=== PATIENT | male | born 1955 | race Caucasian/White ===

== ENCOUNTER 2016-12-25 07:32 | Inpatient (IN) | payer OTHER ==
[2016-12-25 08:00] LABS: % BASOPHILS 0.1 % (0.0-2.0); % EOSINOPHILS 3.5 % (0.0-5.0); % LYMPHOCYTES 43.2 % (20.0-50.0); % MONOCYTES 8.6 % (2.0-10.0); % NEUTROPHILS 44.6 % (40.0-80.0); HEMATOCRIT 48.2 % (41.0-60); HEMOGLOBIN 16.6 gm/dL (12-16); MEAN CELL VOLUME 86.1 fl (80-99); MEAN CORPUSCULAR HEMOGLOBIN 29.6 pg (26.0-30.0); MEAN CORPUSCULAR HGB CONC 34.4 pg (28.0-36.0); MEAN PLATELET VOLUME 9.4 fl; NEUTROPHILE ABSOLUTE 3.1 Th/cmm (1.8-8.0); PLATELET COUNT 154 Th/cmm (150-400); RED BLOOD COUNT 5.59 Mil/cmm (4.30-5.70); RED CELL DISTRIBUTION WIDTH 13.3 % (11.5-20.0); WHITE BLOOD COUNT 6.8 Th/cmm (4.8-10.8)
--- NOTE | 2016-12-25 08:10 | Diagnostic Imaging Report ---
Portable chest x-ray HISTORY: Shortness of breath The overall heart size is difficult to assess with portable technique. No acute focal pulmonary processes. No hilar or mediastinal abnormalities. IMPRESSION: No acute abnormalities
[2016-12-25 08:17] LABS: ALB/GLOB RATIO 1.1 (1.0-1.8); ALKALINE PHOSPHATASE 89 U/L (34-104); ANION GAP 9.6 (7.0-16.0); BILIRUBIN,TOTAL 1.1 mg/dL (0.3-1.0); BUN - UREA NITROGEN 14 mg/dL (7-25); CARBON DIOXIDE 22.4 mEq/L (21.0-31.0); CHLORIDE 107 mEq/L (98-107); CREATININE - SERUM 0.7 mg/dL (0.7-1.3); GLUCOSE 100 mg/dL (70-105); SGOT 71 U/L (13-39); SGPT/ALT 69 U/L (7-52); SODIUM SERUM 135 mEq/L (136-145)
[2016-12-25] MEDS ORDERED: Aspirin 81mg Chewable Tab PO STA (08:29)
[2016-12-25] MEDS ORDERED: NITROGLYCERIN OINT 2% 1 INCH PACKET TP STA (08:30)
[2016-12-25] MEDS ORDERED: Aspirin 81mg Chewable Tab ONE (08:31)
--- NOTE | 2016-12-25 08:36 | ED Physician Chart ---
ED Chief Complaint/HPI - Patient Information Date Seen:: 12/25/16 Time Seen:: 07:35 Chief Complaint:: Dyspnea History of Present Illness:: onset x 2 days of dyspnea and intermittent exertional heavy pressure type chest pain with PND, orthopnea, and exertional dyspnea; pt denies S/T, H/As, neck pain , cough, hemoptysis, Abd. Pain, A/N/V/D/C, fever, chills, or urinary s/s Allergies:: Allergies Allergy/AdvReac Type Severity Reaction Status Date / Time No Known Allergies Allergy Verified 12/25/16 07:35 Vitals:: Vital Signs - 8 hr 12/25/16 07:37 Temp 97.9 F HR 94 BP 127/87 O2 Sat % 96 Historian:: Patient Review:: Nurse's Note Reviewed ED Review of Systems - Review of Systems General/Constitutional: Fever, No chills, No weight loss, No weakness, No diaphoresis, No edema, No loss of appetite Skin: No skin lesions, No rash, No bruising Head: No headache, No light-headedness Eyes: No loss of vision, No pain, No diplopia ENT: No earache, No nasal drainage, No sore throat, No tinnitus Neck: No neck pain, No swelling, No thyromegaly, No stiffness, No mass noted Cardio Vascular: Chest pain, Palpitations, PND, orthopnea, edema Pulmonary: SOB, Cough, No sputum, No wheezing GI: No nausea, No vomiting, No diarrhea, No pain, No melena, No hematochezia, No constipation, No hematemesis G/U: No dysuria, No frequency, No hematuria Musculoskeletal: No bone or joint pain, No back pain, No muscle pain Endocrine: No polyuria, No polydipsia Psychiatric: No prior psych history, No depression, No anxiety, No suicidal ideation Hematopoietic: No bruising, No lymphadenopathy Allergic/Immuno: No urticaria, No angioedema Neurological: No syncope, No focal symptoms, No weakness, No paresthesia, No headache, No seizure, No dizziness, No confusion, No vertigo ED Past Medical History - Past Medical History Obtainable: Yes Past Medical History: HTN, CAD, CHF, Dyslipidemia Family History: Diabetes Melitus, HTN Social History: Smoker, Alcohol, No Drug Use, Single Surgical History: None Psychiatricy History: None Medication: Reviewed Family Medical History - Family Member Mother History Unknown: Yes ED Physical Exam - Physical Examination General/Constitutional: Awake, Well-developed, well-nourished, Alert, No distress, GCS 15, Non-toxic appearing, Ambulatory Head: Atraumatic Eyes: Lids, conjuctiva normal, PERRL, EOMI Skin: Nl inspection, No rash, No skin lesions, No ecchymosis, Well hydrated, No lymphadenopathy ENMT: External ears, nose nl, Nasal exam nl, Lips, teeth, gums nl Neck: Nontender, Full ROM w/o pain, No JVD, No nuchal rigidity, No bruit, No mass, No stridor Respiratory: Nl effort/Exclusion Other Respiratory comments:: Lungs: + Bibasilar Rales Cardio Vascular: RRR, No murmur, gallop, rubs, NL S1 S2 GI: No tenderness/rebounding/guarding, No organomegaly, No hernia, Normal BS's, Nondistended, No mass/bruits, No McBurney tenderness : No CVA tenderness Extremities: No tenderness or effusion, Full ROM, normal strength in all extremities, No edema, Normal digits & nails Neuro/Psych: Alert/oriented, DTR's symmetric, Normal sensory exam, Normal motor strength, Judgement/insight normal, Mood normal, Normal gait, No focal deficits Misc: Normal back, No paraspinal tenderness ED Labs/Radiology/EKG Results - Lab Results Results: Laboratory Tests 12/25/16 12/25/16 07:55 07:55 WBC 6.8 RBC 5.59 Hgb 16.6 Hct 48.2 MCV 86.1 MCH 29.6 MCHC Differential 34.4 RDW 13.3 Plt Count 154 MPV 9.4 Neutrophils % 44.6 Lymphocytes % 43.2 Monocytes % 8.6 Eosinophils % 3.5 Basophils % 0.1 Sodium 135 L Potassium 4.0 Chloride 107 Carbon Dioxide 22.4 Anion Gap 9.6 BUN 14 Creatinine 0.7 Est GFR ( Amer) > 60.0 Est GFR (Non-Af Amer) > 60.0 BUN/Creatinine Ratio 20.0 Glucose 100 Calcium 9.0 Total Bilirubin 1.1 H AST 71 H ALT 69 H Alkaline Phosphatase 89 Total Protein 7.6 Albumin 4.0 L Globulin 3.6 Albumin/Globulin Ratio 1.1 Comments:: BNP: 375 - Radiology Results Results: CXR: NAD - EKG Interpretations EKG Time:: 08:07 Rate & Rhythm: 86; NSR Comments:: Old MS; T-Wave Inversions; ED Septic Shock - . Is Septic Shock (SBP<90, OR Lactate>4 mmol\L) present?: No - <6hrs of presentation: Vital Signs: Vital Signs - 8 hr 12/25/16 07:37 Temp 97.9 F HR 94 BP 127/87 O2 Sat % 96 ED Reassessment (Disposition) - Reassessment Reassessment Condition:: Improved - Diagnosis Diagnosis:: Dx: Dyspnea; Chest Pain; Angina Pectoris; CHF; Myocardial Ischemia - Aftercare/Follow up Instructions Aftercare/Follow-Up Instructions:: Counseled pt regarding lab results/diagnosis & need follow up, Counseled pt & family regarding lab results/diagnosis & need follow up - Patient Disposition Discharge/Transfer:: Acute Care w/in this hosp Accepting Physician:: Dr. Brewer Time Called:: 899 Time Responded:: 09:00 Admitted to:: Telemetry Spoke to:: Dr. Brewer Admitting Medical Physician:: Dr. Brewer Condition at Disposition:: Stable, Improved
[2016-12-25] MEDS ORDERED: NITROGLYCERIN OINT 2% 1 INCH PACKET TP ONE (08:41)
[2016-12-25 08:48] LABS: INR 1.09 (0.5-1.4); PROTHROMBIN TIME (TEST) 11.3 SECONDS (9.5-11.5)
[2016-12-25 08:56] LABS: CHOLESTEROL 137 mg/dL (<200); TRIGLYCERIDES 171 mg/dL (<150)
[2016-12-25 09:51] LABS: HCO3 23.6 mEq/L (20.0-26.0); pH 7.44 (7.35-7.45)
[2016-12-25 09:52] LABS: ABG SOURCE Arterial; ALLEN TEST YES; BE(B) -1.7 mEq/L (-3.0-3.0); FIO2 28
[2016-12-25] MEDS ORDERED: Acetaminophen 500 MG TAB PO ONE (17:30)
--- NOTE | 2016-12-25 21:52 | Consultation ---
DATE OF CONSULTATION: 12/25/2016 PATIENT OF: Dr. Eric Brewer. HISTORY AND PHYSICAL: This is a 61-year-old male patient who complained of shortness of breath on minimal exertion, orthopnea. Following this had minimal swelling in both lower extremities. The patient came to the Emergency Room, the patient was found to have congestive heart failure, hence the patient is admitted. PAST MEDICAL HISTORY: The patient has a history of hypertension, hyperlipidemia, congestive heart failure. FAMILY HISTORY: Diabetes, hypertension. SOCIAL HISTORY: No history of smoking or alcohol abuse. ALLERGIES: None. PHYSICAL EXAMINATION: HEAD: Normocephalic. No lumps or bumps. EYES: Pupils equal, reactive to light. Fundi show AV nicking, sclerae white, conjunctivae pink. NECK: Carotid 2+. Normal upstroke. JVD 10 cm above the sternal angle. Thyroid not palpable. Lymph nodes not palpable. CHEST: Shows increased AP diameter. No kyphosis, scoliosis. LUNGS: Bilateral rales. Decreased breath sounds in both the bases. HEART: PMI sixth intercostal space with lateral to midclavicular line. S1, S2, S3, S4, systolic murmur, grade 2/6, lower left sternal border without radiation. ABDOMEN: Soft. Liver, spleen not palpable. Hepatojugular reflux. Bowel sounds active. RECTAL: Deferred. EXTREMITIES: Peripheral pulses 1+, pedal edema 2+. CLINICAL IMPRESSION: Congestive heart failure, systolic dysfunction, acute cardiomyopathy, hypertension, hyperlipidemia, history of coronary artery disease. PLAN: Admit the patient. We will get echocardiogram. Diuretics, preload afterload reduction. JOB# [id number]
[2016-12-26 06:44] LABS: ANION GAP 11.9 (7.0-16.0); BUN - UREA NITROGEN 21 mg/dL (7-25); BUN/CREATININE RATIO 26.3; CALCIUM SERUM 9.2 mg/dL (8.6-10.3); CARBON DIOXIDE 21.3 mEq/L (21.0-31.0); CHLORIDE 106 mEq/L (98-107); CREATININE - SERUM 0.8 mg/dL (0.7-1.3); GLUCOSE 100 mg/dL (70-105); POTASSIUM SERUM 4.2 mEq/L (3.5-5.1); SODIUM SERUM 135 mEq/L (136-145)
[2016-12-26] MEDS ORDERED: Aspirin 81mg Chewable Tab PO SCH (09:00)
--- NOTE | 2016-12-26 17:22 | Cardiology ---
12/26/[address] Brewer. M-MODE ECHOCARDIOGRAM: Mitral valve, anterior leaflet of mitral valve shows decreased excursion, EF velocity. Posterior leaflet of mitral valve shows decreased excursion. Left ventricular posterior wall shows increased thickness, decreased excursion. Interventricular septum shows increased thickness, decreased excursion, ejection fraction 30%. Left atrium enlarged 4.2 cm. Aortic root shows normal dimension, normal excursion of aortic leaflets. CONCLUSION: Cardiomyopathy, ejection fraction 30%. Mild left atrial enlargement. 2D ECHO: Long axis view shows enlarged left ventricular cavity with decreased ejection fraction, hypertrophy of the left ventricle. Left atrium enlarged. Aortic root shows normal dimension, normal excursion of aortic leaflets. Short axis view of mitral valve normal. Short axis view of aortic valve normal. Apical four chamber view shows enlarged left ventricular cavity with decreased ejection fraction. Left atrium enlarged. Right ventricular cavity, right atrium normal, no pericardial effusion. CONCLUSION: Hypertrophy of the left ventricle, ejection fraction 30%. Doppler study shows moderate mitral regurgitation. [facility]# [id number]
--- NOTE | 2016-12-26 19:20 | History & Physical ---
ADMIT DATE: 12/25/2016 CHIEF COMPLAINT: Shortness of breath. HISTORY OF PRESENT ILLNESS: A 61-year-old male with underlying history of congestive heart failure, who started having shortness of breath for the past one week. The patient denies any associated chest pain, no dizziness, no palpitations, no diaphoresis. 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 The patient said that he did not seek any medical attention since last 1 week. The patient says symptoms got worse, so he came to the Emergency Room. The patient while in the Emergency Room noticed to have mild CHF, subsequently admitted for further treatment. Upon interviewing the patient, the patient said that he had echocardiogram done in the past and he was told he has congestive heart failure. The patient stated that he was told by Cardiology, supposed to schedule for an angiogram test, but it has not happened yet. He is ex-smoker. He currently denies any smoking, but he does drink about 2 drinks a day daily at home. He denies any fever, no chills, no cough or any other complaints. PAST MEDICAL HISTORY: CHF. PAST SURGICAL HISTORY: Denies any past history. FAMILY HISTORY: The patient reported mother has a heart history, but otherwise no significant family history is reported by the patient. ALLERGIES: No drug allergies reported. SOCIAL HISTORY: Prior use of tobacco and street drug use. Denies any current tobacco or street drug use, but he admits daily alcohol drinking. REVIEW OF SYSTEMS: As per HPI. A 12-point system reviewed and negative. PHYSICAL EXAMINATION: VITAL SIGNS: Temperature 97.8, pulse 75, respiration is 19, blood pressure ____/68. HEART: S1, S2 normal. LUNGS: Clear to auscultation bilaterally. ABDOMEN: Soft, nontender. NEUROLOGIC: The patient is alert, awake. Moves all extremities. No focal deficits. ____. AVAILABLE LABORATORY DATA: WBC is 6.8, hemoglobin 16.6, hematocrit 48.2, platelet count 154, pH is 7.4, pO2 of 74, pCO2 32. Sodium 130, potassium 4.2, BUN 21, creatinine 0.8. AST 17, ALT 68. BNP 375, LDL 121, HDL is 18. Troponin, 0.04 and 0.04. His chest x-ray is no acute airway abnormality noted. Echocardiogram of the heart, results pending. ASSESSMENT: 1.Mild congestive heart failure. 2.Hypertension. 3.Elevated liver enzymes. 4.Obesity. 5.Hyperlipidemia. PLAN: The patient is admitted to Tele Unit for cardiac workup, serial troponins have been obtained, so for appears negative. Cardiology has been consulted. Case discussed with Cardiology, recommended to continue on medical management and out patient's Cardiology follow for further evaluation and treatment. The patient will continue on Coreg, Lasix, aspirin, unable to start statin due to elevated liver enzymes. We will obtain ultrasound of the liver with liver enzymes. The patient advised for alcohol ____, stay off smoking. I advised to follow with a Cardiology upon discharge at [facility]. We will discontinue the patient's lisinopril since the patient's blood pressure seems on a lower side. The patient's condition and progress discussed with nursing staff. JOB# [id number]
== END 2016-12-26 15:41 | disposition left against medical advice (07) | DRG 293 ==
LOC: ER 07:32 → TELE 10:30
PROVIDERS: ADMIT Family Medicine; ATTEND Family Medicine
DX: I11.0 Hypertensive heart disease with heart failure (principal); I42.9 Cardiomyopathy, unspecified; E78.5 Hyperlipidemia, unspecified; I50.23 Acute on chronic systolic (congestive) heart failure; I25.119 Atherosclerotic heart disease of native coronary artery with unspecified angina pectoris
CPT/HCPCS: 36415-UA; 71010-TC; 80048-TC; 80053-TC; 80061-TC; 82550-TC; 82803-TC; 83880-TC; 84484-TC; 85025-TC; 85379-TC; 85610-TC; 93005; 94760; J1940; Z7610